=== PATIENT | male | born 1965 | race Caucasian/White ===

== ENCOUNTER 2024-06-07 05:37 | Emergency (ER) | payer BC, SELFPAY ==
[2024-06-07] VITALS (8 sets, daily range): BP systolic 149–191; BP diastolic 75–118; BMI 37.1
--- NOTE | 2024-06-07 05:56 | ED.GENMED ---
History of Present Illness
General
Chief Complaint: Chest Problem
Source: patient
Exam Limitations: none
Time Seen by Provider: 06/07/24 05:56
History of Present Illness
History of Present Illness:
58-year-old male started feeling ill yesterday. Very vague in his symptoms. [place] like there was some nasal congestion as he called it. Developed chest tightness at about 2 AM. This has been persistent. Nonpleuritic. No radiation of the
tightness to his shoulders back or arms. No true shortness of breath. No nausea. Nonexertional.
Past History
Past History
ED Past Medical History: HTN, Hypercholesterolemia and Psychiatric (Anxiety)
Review of Systems
Review of Systems
All Other Systems: Not applicable
Constitutional: Denies fever or chills
Respiratory: Denies cough
ABD/GI: Reports no symptoms
Phy Exam
Physical Exam
Physical Exam:
GENERAL: Alert and oriented in no apparent distress
EYE: Orbits normal.
NECK: Supple, no thyroid palpable
ENT: Pharynx without erythema
CARDIAC: Regular rate and rhythm without any obvious murmurs.
LUNGS: Clear breath sounds,normal
ABDOMEN: Soft, without focal tenderness or distention
NEUROLOGICAL: Alert and oriented , grossly non-focal
SKIN: Warm and dry, no rash or lesion, no discoloration, skin intact.
MUSCULOSKELETAL: No edema,no deformity.Good color
PSYCH: Normal and appropriate interaction.
Course
Orders/Labs/Results
Orders:
Orders
06/07/24 05:47
Electrocardiogram (*1) Urgent
Reason for Study: Shortness of Breath
EKG- Treatment ONCE
06/07/24 05:55
Chest [CR Chest - 2 Views ] Urgent
Comment:
Reason For Exam: sob, chest tightness
06/07/24 06:05
COVID-19 Antigen Urgent
Source: Nasal Swab
Complete Blood Count/With Diff Urgent
Comprehensive Metabolic Panel Urgent
D-Dimer Urgent
Troponin I Urgent
06/07/24 08:58
Electrocardiogram (*1) Urgent
Reason for Study: Chest Pain
EKG- Treatment ONCE
06/07/24 09:04
Electrocardiogram (*1) Stat
Reason for Study: Other
Other Reason for Exam: chest pain
EKG- Treatment ONCE
Troponin I Urgent
Abnormal Lab Results
06/07/24
06:05
WBC 10.9 H 10^3/uL
(4.8-10.8)
Abs Immat Gran (auto) 0.2 H 10^3/uL
(0-0.05)
Absolute Monos (auto) 1.2 H 10^3/uL
(0.1-0.6)
Absolute Eos (auto) 1.0 H 10^3/uL
(0-0.7)
Immature Gran % 1.8 H %
(0-0.5)
Monocytes % 10.9 H %
(1.7-9.3)
Eosinophils % 9.0 H %
(0-6)
Glucose 106 H mg/dl
(70-99)
06/07/24 06:05
06/07/24 06:05
Vital Signs
Initial and Last Documented VS:
Initial Vital Signs
Temp Pulse Resp BP Pulse Ox
98.7 F 90 22 179/118 98
06/07/24 05:39 06/07/24 05:39 06/07/24 05:39 06/07/24 05:39 06/07/24 05:39
Last Documented Vital Signs
Temp Pulse Resp BP Pulse Ox
98.7 F 81 17 160/83 96
06/07/24 05:39 06/07/24 09:15 06/07/24 09:15 06/07/24 08:02 06/07/24 09:15
MDM/Problems Addressed
Differential Diagnosis Includes:
Patient describing some symptoms that sound more infectious like. However with chest tightness cardiac needs to be evaluated. EKG is normal. Troponin pending. Will do repeat EKG and troponin. Relatively low suspicion for cardiac as an etiology.
Also doubt pulmonary emboli but in the differential. D-dimer pending. Pneumonia COVID other viral illness also in the differential.
*Pulse Oximetry
Patient hypoxic: no
*EKG
Interpreted by ED Provider?: Yes
Interpretation: normal
Comparison EKG: no comparison EKG present
Heart Rate: 84
Rate: normal
Rhythm: sinus
[place]: normal axis
Interval: normal interval
QRS Pattern: normal QRS
Ischemia: no ischemia
*Critical Care Note
Total Time (30-74mins, 75-104mins- exclusive of procedures): Not Applicable
Update Note
Update Note:
1135... Patient is remained stable and nontoxic. Cardiac workup is stable. Currently not complaining of any chest pressure. His complaints are of a facial congestion and sore throat. He does have a mild bandemia and a mild high eosinophil count.
Possibly suspicious for a infectious etiology. Possible sinusitis. Nothing to support cardiac etiology at this time. We will cover with antibiotics for a possible sinus issue but recommend cardiac follow-up given recent chest tightness and
cardiac risk factors. Repeat EKG stable no acute changes
ED Attending Note
-
Portions of this chart may have been created with voice recognition software.� Occasional wrong word or��sound alike� substitutions may have occurred due to the inherent limitations of voice recognition software.
Discharge Plan
Departure
Patient Disposition: Home (Routine Discharge)
Date of Disposition: 06/07/24
Time of Disposition: 11:38
Patient with high blood pressure during this ER visit?: Yes
Discharge Problem:
Chest tightness/resolved, Hypertension, Possible sinusitis
Instructions: Chest Pain CBC Follow Up, BLOOD PRESSURE
Prescriptions:
New
amoxicillin-pot clavulanate 875-125 mg tablet
1 tab PO BID Qty: 20 0RF
Referrals:
UNKNOWN - PT DOES,NOT KNOW [Family Provider] -
Activity Restrictions/Additional Instructions:
Antibiotics as directed
You should get a call from the shuttle inspector Saturday for close follow-up
Return sooner with recurrent or prolonged chest tightness shortness of breath high fever or any other concerning symptoms
Interventions
Interventions:
*Risk Screen - Suicide Last Done: 06/07/24 05:39
*General Assessment Last Done: 06/07/24 05:48
*Neglect/Abuse Screening Last Done: 06/07/24 05:39
ED- Fall Risk Assessment Last Done: 06/07/24 05:48
*ED COVID-19 Vaccine History Last Done: 06/07/24 05:48
ED- Cardiac Assessment Last Done: 06/07/24 05:48
ED- Pulmonary Assessment Last Done: 06/07/24 05:48
Discharge Date and Time
Print Language: IRISH
[2024-06-07 06:17] LABS: % Basophils 1.2 % (0-2); % Immature Granulocytes 1.8 % (0-0.5); % Lymphocytes 26.5 % (20.5-51.1); % Monocytes 10.9 % (1.7-9.3); % Neutrophils 50.6 % (42.2-75.2); Absolute Basophils 0.1 10^3/uL (0-0.2); Absolute Immature Granulocytes 0.2 10^3/uL (0-0.05); Absolute Lymphocytes 2.9 10^3/uL (1.2-3.4); Absolute Monocytes 1.2 10^3/uL (0.1-0.6); Absolute Neutrophils 5.5 10^3/uL (1.4-6.5); Hematocrit 42.8 % (39.0-52.0); Hemoglobin 15.7 g/dL (13.0-18.0); Mean Corp Hgb Conc. 36.7 g/dL (33.0-37.0); Mean Corpuscular Hgb 30.6 pg (27.0-31.0); Mean Corpuscular Volume 83.4 fL (80.0-94.0); Mean Platelet Volume 10.4 fL (7.4-10.4); Nucleated Red Blood Cells % 0 % (-); Platelet Count 254 10^3/uL (130-400); Red Blood Cell Count 5.13 10^6/uL (4.70-6.10); Red Cell Dist. Width 13.1 % (11.5-14.5); White Blood Cell Count 10.9 10^3/uL (4.8-10.8)
[2024-06-07 06:31] LABS: ALT (SGPT) 29 U/L (0-50); AST (SGOT) 38 U/L (17-59); Albumin 4.9 g/dl (3.5-5.0); Alkaline Phosphatase 56 U/L (38-126); Blood Urea Nitrogen 20 mg/dl (9-20); COVID-19 Antigen Negative (Negative); Calcium 9.9 mg/dl (8.4-10.2); Carbon Dioxide 23 mmol/L (22-30); Chloride 102 mmol/L (98-107); Estimated Creatinine Clearance > 125 ml/min; Glucose 106 mg/dl (70-99); Potassium 4.9 mmol/L (3.5-5.1); Sodium 137 mmol/L (135-145); Total Protein 7.6 g/dl (6.3-8.2); eGFR > 60.00
[2024-06-07 06:39] LABS: Troponin I 0.016 ng/ml
[2024-06-07 07:01] LABS: D-Dimer < 0.27 ug/mlFEU (0.00-0.50)
[2024-06-07 09:37] LABS: Troponin I 0.019 ng/ml
== END 2024-06-07 12:03 | disposition home or self-care (01) ==
LOC: EMR 05:37
PROVIDERS: Student in an Organized Health Care Education/Training Program; EMERGENCY PHYSICIAN Emergency Medicine
DX: I10 Essential (primary) hypertension (principal); Z11.52 Encounter for screening for COVID-19
CPT/HCPCS: 99285; 71046; 80053; 84484; 85025; 85379; 87811; 93005

== ENCOUNTER 2025-06-08 10:36 | Inpatient (IN) | payer BC, SELFPAY ==
[2025-06-08] VITALS (15 sets, daily range): BP systolic 128–165; BP diastolic 77–102; BMI 37.2; BMI 36.6
[2025-06-08 02:18] LABS: Hematocrit 43.6 % (39.0-52.0); Hemoglobin 15.0 g/dL (13.0-18.0); Mean Corp Hgb Conc. 34.4 g/dL (33.0-37.0); Mean Corpuscular Volume 85.8 fL (80.0-94.0); Nucleated Red Blood Cells % 0 % (-); Platelet Count 273 10^3/uL (130-400); Red Cell Dist. Width 13.1 % (11.5-14.5)
[2025-06-08 02:40] LABS: ALT (SGPT) 41 U/L (0-50); AST (SGOT) 27 U/L (17-59); Albumin 4.7 g/dl (3.5-5.0); Alkaline Phosphatase 48 U/L (38-126); Blood Urea Nitrogen 18 mg/dl (9-20); Calcium 9.9 mg/dl (8.4-10.2); Carbon Dioxide 28 mmol/L (22-30); Chloride 104 mmol/L (98-107); Estimated Creatinine Clearance > 125 ml/min; Glucose 111 mg/dl (70-99); Lipase 86 U/L (23-300); Potassium 4.9 mmol/L (3.5-5.1); Sodium 142 mmol/L (135-145); Total Protein 7.2 g/dl (6.3-8.2); eGFR > 60.00
[2025-06-08 02:51] LABS: Troponin I < 0.012 ng/ml
--- NOTE | 2025-06-08 03:05 | ED.GENMED ---
History of Present Illness
General
Chief Complaint: Chest Pain
Source: patient
Time Seen by Provider: 06/08/25 02:52
History of Present Illness
History of Present Illness:
This patient is a 59-year-old male who states that for many years he has had pain at a specific 'lump' in the epigastric area that will come and go. His doctor told him it may be related to fat tissue and that there was no immediate treatment
recommended. However, tonight around 11 PM, he noted pain in this area that has not gone away which prompted his visit here. He denies feeling dyspneic, but notes that the pain makes it feel like it is hard to breathe although he is getting enough
air in and does not feel breathless. He denies chest pain, back pain, nausea, vomiting, fever, chills, urinary symptoms, headache, swelling, or other complaints.
Past History
Past History
ED Past Medical History: HTN, Hypercholesterolemia and Psychiatric (Anxiety)
ED Past Surgical History: Orthopedic
Social History
Tobacco: Non-smoker
Alcohol: Occasional
Drug: None
Living: with family
Phy Exam
Physical Exam
Physical Exam:
GENERAL: Alert , appears mildly uncomfortable
EYE: pupils equal and reactive
NECK: Supple, no significant adenopathy.
ENT: o/p clr, mmm.
CARDIAC: Regular rate and rhythm .
LUNGS: Clear breath sounds bilaterally, no acute respiratory distress, no wheezes/rales/rhonchi
ABDOMEN: Soft, tenderness noteed at a specific area near epigastrum ?small lipoma here, no skin changes such as warm/cyanosis/redness/fluctuance/crepitus, no r/g, no cvat
NEUROLOGICAL: Alert and oriented, no focal neuro deficits
SKIN: Warm and dry, skin intact.
MUSCULOSKELETAL: No edema, well perfused.
PSYCH: Normal and appropriate interaction.
Scores
Heart Score for Chest Pain Patients
STEMI patient?: Not applicable
Course
Orders/Labs/Results
Orders:
Orders
06/08/25 00:58
EKG [Electrocardiogram (*1)] Urgent
Reason for Study: Chest Pain
Other Reason for Exam: substernal pain
EKG- Treatment ONCE
06/08/25 02:02
Cardiac Monitoring- Treatment ONCE
IV Insert/Care/Rem.- Treatment PRN
CR Chest - 2 Views Urgent
Comment:
Reason For Exam: respiratory distress
O2 Therapy [RESP] Urgent
Titrate/Wean O2 to maintain O2 sat greater than (%): 93
Special Instructions: TO MAINTAIN CONTINUOUS O2 SATS >/= 93%
Pulse Ox/cont/shift [RESP] Urgent
Quantity: 1
Special Instructions: continuous pulse ox
06/08/25 02:09
Complete Blood Count/With Diff Urgent
06/08/25 02:10
Comprehensive Metabolic Panel Urgent
Lipase Urgent
NT-proBNP Urgent
Troponin I Urgent
06/08/25 03:04
CT Abd/Pel (IV only)-DH only Urgent
Comment:
Reason For Exam: upper abd pain
Morphine Sulfate 4 mg IV NOW STA
06/08/25 03:26
Lactate Level [Lactic Acid] Urgent
06/08/25 04:00
Morphine Sulfate 4 mg IV NOW STA
06/08/25 05:19
CT Chest PE Study Urgent
Comment:
Reason For Exam: pain
06/08/25 05:33
Troponin I Urgent
06/08/25 06:36
US Abdomen Complete/Upper Urgent
Comment:
Reason For Exam: pain
06/08/25 06:40
Morphine Sulfate 4 mg IV NOW STA
06/08/25 10:20
Admit/Transfer Patient As Directed
Co-Sign Provider:
Level of Care: Inpatient admission
Assign to:: Medical/Surgical
Physician / Group: Gonzalez
Diagnosis: Intractable abdominal pain
Reason for Hospitalization: see progress note
Expected length of stay greater than two midnights?: Yes
ELOS- Estimated Length of Stay in days: 3
I certify the patient meets the requirements for IP care: Yes
PRN Pain Medication Management As Directed
May give lesser potent ordered pain med per pt: Yes
preference::
Protocol:: Medication orders for pain may be administered in a
manner that supports deferring to patient preference
when the pt is:
- Requesting an ordered lesser potent pain medication.
Least to most potent pain medications are defined
as: acetaminophen < NSAID < tramadol < opioids
(morphine, oxycodone, hydromorphone).
- Requesting a lesser dose of the same medication IF
ORDERED.
- Requesting a less intrusive route of administration
if both routes are prescribed by the provider (PO <
IV).
06/08/25 10:53
Sequential Compression Device [Pneumatic Compression Sleeves] As Directed
Type: Knee high
Comment: while in bed
DX Deep Vein Thrombosis Video Routine
Abnormal Lab Results
06/08/25 06/08/25
02:09 02:10
WBC 14.3 H 10^3/uL
(4.8-10.8)
MPV 10.5 H fL
(7.4-10.4)
Abs Immat Gran (auto) 0.2 H 10^3/uL
(0-0.05)
Absolute Neuts (auto) 8.3 H 10^3/uL
(1.4-6.5)
Absolute Monos (auto) 1.7 H 10^3/uL
(0.1-0.6)
Immature Gran % 1.3 H %
(0-0.5)
Monocytes % 12.0 H %
(1.7-9.3)
Glucose 111 H mg/dl
(70-99)
06/08/25 02:09
06/08/25 02:10
Vital Signs
Initial and Last Documented VS:
Initial Vital Signs
Temp Pulse Resp BP Pulse Ox
97.6 F 90 18 165/102 97
06/08/25 01:16 06/08/25 01:16 06/08/25 01:16 06/08/25 01:16 06/08/25 01:16
Last Documented Vital Signs
Temp Pulse Resp BP Pulse Ox
98.2 F 93 20 141/80 96
06/09/25 23:38 06/09/25 23:38 06/09/25 23:38 06/09/25 23:38 06/09/25 23:38
*Pulse Oximetry
SaO2: 96
Oxygen Mode of Delivery: Room air
Patient hypoxic: no
*Critical Care Note
Total Time (30-74mins, 75-104mins- exclusive of procedures): Not Applicable
Update Note
Update Note:
Patient presents to the Emergency Department with upper abdominal pain
Number and Complexity of Problems Addressed at the Encounter
� Chronic conditions affecting care:
� Acute Exacerbation and/or Progression of Chronic Illness:
� Differential Diagnosis includes: But not limited to cholelithiasis, ACS, incarcerated hernia, gastritis, etc. etc.
Amount and/or Complexity of Data to be Reviewed and Analyzed
� I performed an independent evaluation of and my interpretation is:
EKG: Read by me, normal sinus rhythm, normal rate, no acute ischemia
CT: CT abdomen pelvis appendix normal no bowel obstruction cholecystitis diverticulitis pancreatitis or obstructing renal stone small fat-containing umbilical hernia correlate clinically for reducibility small right pleural
effusion hepatic steatosis abdominal aorta is of normal caliber vascular calcifications scattered lymph nodes are likely reactive. CT chest technical level study is adequate no evidence of PE or dissection lungs are clear small right pleural
effusion no pneumothorax mild cardiomegaly no thoracic aortic aneurysm
Xrays: Read by me chest x-ray NAD
Laboratory Studies: Lipase and LFTs unremarkable making liver/pancreatic disease very unlikely. Mild white blood cell count elevation, nonspecific.
Other:us SEVERE DIFFUSE HEPATIC STEATOSIS.
2. Mild hepatomegaly.
� Review of other/old records reveals:
� Clinical information was obtained by an independent historian:
� Prescriptions/Medications Considered but not given:
� Further testing considered but not performed:
Risk of Complications and/or Morbidity or Mortality of Patient Management
� Social determinants of health affecting care:
� Discussion with other providers (PCP, Hospitalists, Consultants, etc):
� Escalation of care including admission/observation vs risk of discharge considered:
ED Attending Note
-
Portions of this chart may have been created with voice recognition software.� Occasional wrong word or��sound alike� substitutions may have occurred due to the inherent limitations of voice recognition software.
Discharge Plan
Departure
Patient Disposition: Admit
Date of Disposition: 06/08/25
Time of Disposition: 08:38
Admit to: Med/Surg
Presentation/result/management discussed w/ accepting MD/DO: Hospitalist
Discharge Problem:
Abdominal pain
Interventions
Interventions:
*Risk Screen - Suicide Last Done: 06/08/25 01:16
*General Assessment Last Done: 06/08/25 02:00
*Neglect/Abuse Screening Last Done: 06/08/25 01:16
*ED- Fall Risk Assessment Last Done: 06/08/25 02:00
*ED COVID-19 Vaccine History Last Done: 06/08/25 02:00
*Nursing Disposition Last Done: 06/08/25 11:48
ED- Cardiac Assessment Last Done: 06/08/25 02:37
Discharge Date and Time
Discharge Date/Time: 06/08/25 11:48
[2025-06-08] MEDS: MORPHINE SULFATE 4 MG IV ×3 (03:08→07:26)
[2025-06-08 06:16] LABS: Troponin I < 0.012 ng/ml
--- NOTE | 2025-06-08 11:19 | HPS.HSE ---
Family Physician
-
Family Physician: Linda Maynard MD
Chief Complaint
-
Abdominal pain
History of Present Illness
Patient presents with acute onset of abdominal pain starting Saturday. It got intensified Saturday and last night it was severe and he cannot sleep so came to the hospital.
He says he can pinpoint his area of pain and points to his epigastric area. Since the onset of this pain continuous and progressively worse and rates 10 out of 10. No radiation. But if he moves it hurts and if he takes a deep breath it hurts in
that area. Intermittent nausea or vomiting. He was able to eat yesterday. No diarrhea.
When he gets constipated you still with some discomfort in that area before.
No trauma.
No fever or chills.
Hard for him to breathe because of the pain. No chest pain.
In the last 2 years he has noticed occasionally he will have transient dysphagia with certain consistencies of food. Never had EGD. Denies any prior history of gastritis or gastric ulcer. Denies regular use of ibuprofen. Occasional alcohol use.
He has used multiple doses of IV morphine and still in pain.
He relocated from [place] 5 months ago to take care of his stepfather.
Medical History
Past Medical History
Past Medical History: Reports HTN, Hypercholesterolemia and Psychiatric (Mood disorder; on Depakote for many years.)
Past Surgical History: Reports Other (No abdominal surgeries)
Social History
Tobacco: Non-smoker
Alcohol: Occasional
Drug: None
Living: With Family
Family History
Family History: Not pertinent
Allergies / Home Medications
Allergies reflects when Allergies were last updated in [facility].
Home Medications with original date entered in [facility]
Allergy/Medication List:
Allergies
Allergy/AdvReac Type Severity Reaction Status Date / Time
No Known Allergies Allergy Verified 06/08/25 01:16
Home Medications
ascorbic acid (vitamin C) 500 mg tablet (Vitamin C) 500 mg PO DAILY 06/08/25
atorvastatin 40 mg tablet (Lipitor) 40 mg PO QPM 06/08/25
bupropion HCl 300 mg 24 hr tablet, extended release (Wellbutrin XL) 300 mg PO DAILY 06/08/25
calcium carbonate (Tums) 200 mg PO BIDPRN PRN gerd 06/08/25
cholecalciferol (vitamin D3) 25 mcg (1,000 unit) tablet (Vitamin D3) 25 mcg PO DAILY 06/08/25
divalproex 500 mg tablet,extended release 24 hr 2,000 mg PO HS 06/08/25
ezetimibe 10 mg tablet (Zetia) 10 mg PO DAILY 06/08/25
fenofibric acid (choline) 135 mg capsule,delayed release 135 mg PO DAILY 06/08/25
ibuprofen 200 mg tablet (Advil) 400 mg PO Q8HPRN PRN mild pain 06/08/25
icosapent ethyl 1 gram capsule 1 g PO DAILY 06/08/25
levofloxacin 500 mg tablet 500 mg PO DAILY 06/08/25
losartan 100 mg tablet 100 mg PO DAILY 06/08/25
vitamin B complex 1 tab PO DAILY 06/08/25
Review of Systems
-
A 12 point ROS was completed and negative except as noted: Yes
Physical Exam
Vital Signs
Vital Signs
Temp Pulse Resp BP Pulse Ox
97.6 F 85 20 151/88 93
06/08/25 01:16 06/08/25 06:04 06/08/25 05:00 06/08/25 06:04 06/08/25 05:00
Physical Exam
General: No Apparent Distress
Respiratory: Clear and Non Labored Respirations; No Accessory Resp Muscle Use
Cardiac: S1/S2 and Regular Rhythm; No Tachycardia or Murmur
GI: Soft, Non Distended (Obese abdomen), Normal Bowel Sounds and Tender (Localized area of tenderness in the medial part of epigastric area. Reproducible. No rebound but some guarding )
Neuro: AO x 3
Psych: Calm
Laboratory Results
-
06/08/25 02:09
06/08/25 02:10
Laboratory Results
Lactic Acid 1.5 mmol/L (0.7-2.0) 06/08/25 03:26
Total Bilirubin 0.8 mg/dl (0.2-1.3) 06/08/25 02:10
AST 27 U/L (17-59) 06/08/25 02:10
ALT 41 U/L (0-50) 06/08/25 02:10
Alkaline Phosphatase 48 U/L (38-126) 06/08/25 02:10
Troponin I < 0.012 ng/ml 06/08/25 05:33
Lipase 86 U/L (23-300) 06/08/25 02:10
Data Reviewed
-
Ultrasound: Report Reviewed by me ( abdo)
Lab Data: Labs Reviewed by me
Impression/Plan
-
Acute intractable abdominal pain of unclear etiology
Very focal pain and tenderness in the epigastric area medial to epigastric area. Reproducible pain. Some guarding because of tenderness.
Suspect musculoskeletal/soft tissue but no trauma ; patient had intermittent issues with dysphagia and heartburn. Rule out any internal hernias including paraesophageal hernia issues. Consult general surgery. Asked radiology to review the CT
chest and abdomen for any internal hernia or paraesophageal issues. Prelim report is nondiagnostic.
Keep him n.p.o. for now. Continue with the pain medication. Start on PPI. Start on IV fluids.
Leukocytosis noted
CT of the chest abdomen pelvis no acute findings on prelim report
Could be reactive
Trend for now
Mood disorder-continue home medications
Hyperlipidemia-continue with home medication
Hypertension-continue with losartan
Full code
--- NOTE | 2025-06-08 12:57 | CON.GS ---
Consultation
-
Date/Time Consultation Performed: 06/08/25
Requesting Provider: Carlos
Performing Provider: Pita
Reason for Consultation: Abd pain
Medical History
-
Chief Complaint: Epigastric pain
History of Present Illness:
59M with chronic pain for over 10 years localized to epigastrum. He feels a lump there, that does not change in size. It seems to be worse when he is bloated, but not affected by exertion. No radiation. Not a/w f/c/n/v. Recent sinus infection he has
been on levaquin, course complete 3 days ago. He c/o feeling generally unwell.
Past Medical History
Past Medical History: Other (HTN, Hypercholesterolemia and Psychiatric (Anxiety))
Past Surgical History: Orthopedic
Social History
Tobacco: Non-Smoker
Alcohol: Occasional
Living: With Family
Family History
Family History: Reviewed & Noncontributory
Allergies / Home Medications
Allergy/AdvReac Type Severity Reaction Status Date / Time
No Known Allergies Allergy Verified 06/08/25 01:16
�Medication �Instructions �Recorded �Confirmed �Type
ascorbic acid (vitamin C) 500 mg 500 mg PO DAILY 06/08/25 06/08/25 History
tablet (Vitamin C)
atorvastatin 40 mg tablet (Lipitor) 40 mg PO QPM 06/08/25 06/08/25 History
bupropion HCl 300 mg 24 hr tablet, 300 mg PO DAILY 06/08/25 06/08/25 History
extended release (Wellbutrin XL)
calcium carbonate (Tums) 200 mg PO BIDPRN PRN gerd 06/08/25 06/08/25 History
cholecalciferol (vitamin D3) 25 25 mcg PO DAILY 06/08/25 06/08/25 History
mcg (1,000 unit) tablet (Vitamin
D3)
divalproex 500 mg tablet,extended 2,000 mg PO HS 06/08/25 06/08/25 History
release 24 hr
ezetimibe 10 mg tablet (Zetia) 10 mg PO DAILY 06/08/25 06/08/25 History
fenofibric acid (choline) 135 mg 135 mg PO DAILY 06/08/25 06/08/25 History
capsule,delayed release
ibuprofen 200 mg tablet (Advil) 400 mg PO Q8HPRN PRN mild pain 06/08/25 06/08/25 History
icosapent ethyl 1 gram capsule 1 g PO DAILY 06/08/25 06/08/25 History
levofloxacin 500 mg tablet 500 mg PO DAILY 06/08/25 06/08/25 History
losartan 100 mg tablet 100 mg PO DAILY 06/08/25 06/08/25 History
vitamin B complex 1 tab PO DAILY 06/08/25 06/08/25 History
Review of Systems
-
A 10 point review of systems was completed, and was negative except as per HPI.
Physical Exam
Vital Signs
Temp Pulse Resp BP Pulse Ox
97.4 F 83 20 159/87 95
06/08/25 11:56 06/08/25 11:56 06/08/25 11:56 06/08/25 11:56 06/08/25 11:56
06/07/25 06/08/25 06/09/25
06:59 06:59 06:59
Actual Weight 114.2 kg 112.264 kg
Body Mass Index (BMI) 36.6
Lab Results
06/08/25 02:09
06/08/25 02:10
WBC 14.3 10^3/uL (4.8-10.8) H 06/08/25 02:09
Hgb 15.0 g/dL (13.0-18.0) 06/08/25 02:09
Hct 43.6 % (39.0-52.0) 06/08/25 02:09
Plt Count 273 10^3/uL (130-400) 06/08/25 02:09
Abs Immat Gran (auto) 0.2 10^3/uL (0-0.05) H 06/08/25 02:09
Neutrophils % 58.2 % (42.2-75.2) 06/08/25 02:09
Physical Exam
General: Well Developed, Well Nourished, No Apparent Distress and Other (diaphoretic)
HEENT: Normocephalic and Anicteric
GI: Soft, Tender (mainly to epigastrium, moderate, mild ttp to RUQ), Distended (mild-mod) and Other (soft reducible umbilical hernia)
Skin: Warm and Dry
Neuro: AO x 3
Psych: Calm
Data Reviewed
-
CT Scan: Image Personally Visualized and interpreted, Report Reviewed by me, Discussed with Physician and Discussed with Patient
Ultrasound: Image Personally Visualized and interpreted, Report Reviewed by me, Discussed with Physician and Discussed with Patient
Labs: Labs Reviewed by me, Discussed with Physician and Discussed with Patient
Assessment / Plan
-
59M with small epigastric subq mass, lipoma vs small ventral hernia
AFVSS, mild ttp to lump at epigastrium
Leukocytosis noted
US negative for biliary issues
CT negative for acute issues, negative for epigastric hernia, notable for 2cm umbilical hernia containing fat
I do not suspect this small lipoma vs epigastric hernia is related to his leukocytosis, diaphoresis, or general unwell feeling. Recommend outpt mgmt for the subq mass. Elective surgery offered, advised him to f/u in my office upon DC.
Pls call with ?s
[2025-06-08] MEDS: NSS (PRESERVATIVE FREE) 10 ML IV (13:03)
[2025-06-08] MEDS: ZOFRAN 4 MG IV (13:03)
[2025-06-08] MEDS: PROTONIX IV 40 MG IV (13:03)
[2025-06-08] MEDS: FLUSH (NSS) 1 FLUSH IV ×2 (13:03→17:37)
[2025-06-08] MEDS: COZAAR 100 MG PO (13:03)
[2025-06-08] MEDS: LR 1000 IV ×2 (13:04→23:50)
[2025-06-08] MEDS: WELLBUTRIN XL (24 hour extended release) 300 MG PO (13:04)
--- NOTE | 2025-06-08 13:30 | PTCARENOTE ---
Received pt from ER via stretcher, accompanied by ER staff. Pt AAO x3, REA; ambulatory to bed with minimal assistance; denies weakness/dizziness. VSS. On room air- pulse ox95%, no SOB noted. Abd large, firm, pt c/o discomfort mid abd around sl
firm 'lump' (+) nausea/vomiting small amts bile secretions. Pt to be NPO except meds/sips clears/ice chips. Pt DTV- states will void in BR; urinal left at bedside. Skin sl diaphoretic, afebrile; intact. IVF's RL @ 80 ml/hr initiated via Lt AC
site, currently infusing without sx of infiltration. Oriented to [place]. Will continue to monitor.
--- NOTE | 2025-06-08 14:45 | PTOTSP ---
Speech Language Pathology
Pt seen for clinical bedside swallow evaluation. Pt reported occasional globus sensation in upper chest with dense solids, such as steak. He reported this clears on own given time or with a liquid wash. He denied any regurgitation or previous
PNA. P.O. trials of puree, regular solids, and thin liquids provided. Adequate mastication, bolus formation, and A-P transit noted with no oral residue. No overt signs of aspiration. Appears to be esophageal in nature.
Recommend:
(1) Regular solids/thin liquids
(2) General aspiration precautions
(3) Esophageal precautions: sit upright, slow rate, small bites, take break if globus sensation noted
(4) Meds as tolerated
(5) Consider GI consult either inpatient or outpatient pending surgical workup
(6) UTILITY MANAGER to sign off. Please reconsult as indicated
--- NOTE | 2025-06-08 16:17 | PTCARENOTE ---
Pt resting quietly at present, no c/o. VSS. Jabier sips clear/ice chips; to start clear liquid diet. IVF's RL @ 80 ml/hr infusong via Lt AC site without sx of infiltration. Will; continue to monitor.
[2025-06-08] MEDS: LIPITOR 40 MG PO (17:32)
[2025-06-08] MEDS: DILAUDID 0.25 MG IV ×2 (17:37→23:56)
[2025-06-08 18:16] LABS: Glucose - Point of Care 95 mg/dl (70-99)
[2025-06-08] MEDS: DEPAKOTE ER (24 HR RELEASE) 2000 MG PO (21:15)
--- NOTE | 2025-06-08 23:04 | VATNOTE ---
called by PCN to check IV LMAB site with signicant infiltration about 6 inches made PCN aware to elevate and apply ice.
[2025-06-09 07:00] VITALS: BP 138/87
[2025-06-09 07:28] LABS: Hematocrit 39.5 % (39.0-52.0); Hemoglobin 13.7 g/dL (13.0-18.0); Mean Corp Hgb Conc. 34.7 g/dL (33.0-37.0); Mean Corpuscular Volume 87.8 fL (80.0-94.0); Platelet Count 237 10^3/uL (130-400); Red Cell Dist. Width 13.5 % (11.5-14.5)
[2025-06-09] MEDS: WELLBUTRIN XL (24 hour extended release) 300 MG PO (07:41)
[2025-06-09] MEDS: PROTONIX IV 40 MG IV ×2 (07:42→20:37)
[2025-06-09] MEDS: TRICOR 145 MG PO (07:42)
[2025-06-09] MEDS: COZAAR 100 MG PO (07:42)
[2025-06-09] MEDS: ZETIA 10 MG PO (07:42)
[2025-06-09] MEDS: DILAUDID 0.25 MG IV (07:43)
[2025-06-09] MEDS: NSS (PRESERVATIVE FREE) 10 ML IV ×2 (07:43→20:38)
[2025-06-09 07:58] LABS: ALT (SGPT) 29 U/L (0-50); AST (SGOT) 17 U/L (17-59); Albumin 4.0 g/dl (3.5-5.0); Alkaline Phosphatase 38 U/L (38-126); Blood Urea Nitrogen 16 mg/dl (9-20); Calcium 8.8 mg/dl (8.4-10.2); Carbon Dioxide 31 mmol/L (22-30); Chloride 100 mmol/L (98-107); Estimated Creatinine Clearance 124 ml/min; Glucose 111 mg/dl (70-99); Potassium 4.4 mmol/L (3.5-5.1); Sodium 139 mmol/L (135-145); Total Protein 6.1 g/dl (6.3-8.2); eGFR > 60.00
[2025-06-09] MEDS: LR 1000 IV (11:39)
[2025-06-09] MEDS: ROXICODONE 5 MG PO ×2 (11:39→18:27)
--- NOTE | 2025-06-09 11:45 | CM ---
Alert awake oriented patient who lives with step father Max in a 3 story home with 12 step to enter.He is independent in driving and in all activities of daily living.He was offered VN he declined need.
No VN hx / SNF history in [place]
Pharmacy [facility] [address]
PCP DR Maynard
PLAN Home Declined VN
--- NOTE | 2025-06-09 14:42 | W.PN.HOSP.TC ---
Today's Communication/Plan
-
Increase PPI to twice daily
Consult GI
Assessment / Plan
Assessment / Plan
Acute intractable abdominal pain of unclear etiology
Epigastric area. Patient with ongoing some dysphagia.
CT of the abdomen pelvis nondiagnostic for abdominal pathology. Appreciate surgical input.
Continue with PPI and antiemetics.
Suspicion is for upper GI pathology-consult GI.
Leukocytosis noted
CT of the chest abdomen pelvis no acute findings on prelim report
Could be reactive.improving
Trend for now
Mood disorder-continue home medications
Hyperlipidemia-continue with home medication
Hypertension-continue with losartan
Full code
Anticipated Discharge: 24 - 48 hours
Subjective/Interval History
-
Date of Service: June 09, 2025
Continued abdominal pain/epigastric pain. Needing IV pain medication and also nausea medicine.
No fever or chills.
Objective Data
-
Labs:
Laboratory Results
06/09/25
06:11
WBC 11.2 H
Hgb 13.7
Hct 39.5
Plt Count 237
Sodium 139
Potassium 4.4
Chloride 100
Carbon Dioxide 31 H
BUN 16
Creatinine 0.8
Glucose 111 H
Calcium 8.8
Total Bilirubin 0.8
AST 17
ALT 29
Alkaline Phosphatase 38
Vital Signs:
Vital Signs
Temp Pulse Resp BP Pulse Ox
97.6 F 89 12 138/87 95
06/09/25 07:00 06/09/25 07:42 06/09/25 07:00 06/09/25 07:42 06/09/25 10:45
I&O
06/08/25 06/09/25 06/10/25
06:59 06:59 06:59
Intake Total 1820 / 1820
Output Total 0 / 0
Balance 1819
Physical Exam
-
General: Comfortable
Respiratory: Clear to Auscultation and Non Labored Respirations; Negative Accessory Resp Muscle Use
Cardiac: Regular Rhythm and S1/S2
GI: Soft, Nondistended, Normal Bowel Sounds and Tender (epigastric area )
Neuro: AO x 3
Data Reviewed
-
Labs: Labs Reviewed by me
[2025-06-09 15:00] VITALS: BP 141/87
--- NOTE | 2025-06-09 15:42 | CON.GI ---
Addendum entered and electronically signed by Aubrie Mckeon Do, MD 06/09/25 17:18:
I saw and examined the patient.
The BUILD MANAGER's note was reviewed and I agree with the note.
Comment: Ronnie is a 59yo M with h/o HTN, hyperplipidemia and obeisty who reports acute epigastric abd pain started one week ago with nausea an poor oral intake. He feels a 'lump' there for a few years. 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
retired. He feels that there is associated reflux, heartburn and solid food dysphagia few times per week. Denies diarrhea, constipation or wt loss. VSS exam distended abd TTP epigastric periumbilical hernia. Labs reviewed no anemia. EGD/colon
9yrs ago in [facility] per pt benign polyps. Imaging: Abd US fatty liver, CT chest neg PE CTAP IV contrast small R pleural effusion
Impression
- Acute epigastric abd pain
ddx includes PUD, hernia or dyspepsia
- Dysphagia to solids
- Leukocytosis
- Hepatic steatosis
- HTN
- Hyperlipidemia
- Obesity
Recommendations
- EGD tomorrow
- NPO at MN
- C/w PPI to BID
- Add carafate
- Miralax x1 now, gas ex PRN
Will follow with you.
Original Note:
Consultation
-
Date/Time Consultation Requested: 06/09/25 1445
Date/Time Consultation Performed: 06/09/25 1545
Requesting Provider: Lj Gonzalez MD
Performing Provider: NEGRO Flynn, Aubrie Gilman MD
Reason for Consultation: abdominal pain
Medical History
Chief Complaint / HPI
History of Present Illness:
Pt is a 59yo with hx HTN, hypercholesterolemia, mood disorder, anxiety, prior back surgery, with onset of abdominal pain. On admission noted with WBC 14,300, hbg 13.7, platelets 237, stable chemistry with glucose 111 with normal LFT's and lipase.
Pt has been seen by surgery team due to intensity of pain and lump in epigastric area concern for lipoma vs ventral hernia. Imaging on admission with US noted severe hepatic steatosis,HM, CT chest- no PE, small right effusion, no PNA< CT a/p IV
contrast only with no HH or esophageal thickening, small lymph node distal esophagus, fatty liver, no obstructive uropathy, mild stool burden , periumbilical hernia with fat, left lateral post surgical changes, normal appendix.
In review with patient he admits to multiple complaints. He has has 3 years of dysphagia with feeling of solids sticking in lower esophagus. He denies wt loss but admits to wt gain. no hematemesis. He also has worsening abdominal pain. He
admits to chronic lump in abdomen but now 10/10 pain with shortness of breath on admission. Pain worse with movement. Pain improved with pain med now 5/10 and no change in eating. Occasional GERD with tums PRN. + constipation at times with
increased epigastric pain at time. No diarrhea or rectal bleeding. colonoscopy 8 years ago with polyps.
Past Medical History
Past Medical History: HTN, Hypercholesterolemia, Psychiatric (anxiety, mood disorder) and Other (colon polyps)
Past Surgical History: Orthopedic (back surgery x 2 and rotator cuff)
Social History
Tobacco: Non-Smoker
Alcohol: None
Drug: None
Personal:
Living: With Family
Employment: Not Employed
Family History
Family History: Other (no family hx colon CA or GI problems )
Allergies / Home Medications
Allergy/AdvReac Type Severity Reaction Status Date / Time
No Known Allergies Allergy Verified 06/08/25 01:16
�Medication �Instructions �Recorded
ascorbic acid (vitamin C) 500 mg 500 mg PO DAILY 06/08/25
tablet (Vitamin C)
atorvastatin 40 mg tablet (Lipitor) 40 mg PO QPM 06/08/25
bupropion HCl 300 mg 24 hr tablet, 300 mg PO DAILY 06/08/25
extended release (Wellbutrin XL)
calcium carbonate (Tums) 200 mg PO BIDPRN PRN gerd 06/08/25
cholecalciferol (vitamin D3) 25 25 mcg PO DAILY 06/08/25
mcg (1,000 unit) tablet (Vitamin
D3)
divalproex 500 mg tablet,extended 2,000 mg PO HS 06/08/25
release 24 hr
ezetimibe 10 mg tablet (Zetia) 10 mg PO DAILY 06/08/25
fenofibric acid (choline) 135 mg 135 mg PO DAILY 06/08/25
capsule,delayed release
ibuprofen 200 mg tablet (Advil) 400 mg PO Q8HPRN PRN mild pain 06/08/25
icosapent ethyl 1 gram capsule 1 g PO DAILY 06/08/25
levofloxacin 500 mg tablet 500 mg PO DAILY 06/08/25
losartan 100 mg tablet 100 mg PO DAILY 06/08/25
vitamin B complex 1 tab PO DAILY 06/08/25
Review of Systems
-
History Source: Patient
Constitutional: Reports Weight Gain
EENT: Reports No Symptoms
Respiratory: Reports No Symptoms
Cardiac: Reports No Symptoms
Abdomen/GI: Reports Abdominal Pain, Constipated (at time ) and Other (dysphagia , occasional GERD)
: Reports No Symptoms
Musculoskeletal: Reports Other
Skin: Reports No Symptoms
Neurological: Reports Weakness
Endocrine: Reports No Symptoms
Hematologic/Lymphatic: Reports No Symptoms
Vital Signs
Temp Pulse Resp BP Pulse Ox
97.6 F 89 12 138/87 95
06/09/25 07:00 06/09/25 07:42 06/09/25 07:00 06/09/25 07:42 06/09/25 10:45
Physical Exam
Exam
General: Well Developed, Well Nourished, No Apparent Distress and Other (anxious with no etiology for pain )
HEENT: Normocephalic and Anicteric
Respiratory: Clear
Cardiac: Regular Rhythm
GI: Soft, Non Distended and Tender (around palpable lump in epigastric area-- worsening pain with movement to bedside )
Musculoskeletal: No Clubbing and No Cyanosis
Skin: Warm and Dry
Neuro: Awake, Alert and AO x 3
Psych: Calm
Results
WBC 11.2 10^3/uL (4.8-10.8) H 06/09/25 06:11
Hgb 13.7 g/dL (13.0-18.0) 06/09/25 06:11
Hct 39.5 % (39.0-52.0) 06/09/25 06:11
MCV 87.8 fL (80.0-94.0) 06/09/25 06:11
Plt Count 237 10^3/uL (130-400) 06/09/25 06:11
Absolute Neuts (auto) 8.3 10^3/uL (1.4-6.5) H 06/08/25 02:09
Sodium 139 mmol/L (135-145) 06/09/25 06:11
Potassium 4.4 mmol/L (3.5-5.1) 06/09/25 06:11
Chloride 100 mmol/L (98-107) 06/09/25 06:11
Carbon Dioxide 31 mmol/L (22-30) H 06/09/25 06:11
BUN 16 mg/dl (9-20) 06/09/25 06:11
Creatinine 0.8 mg/dL (0.7-1.3) 06/09/25 06:11
Calcium 8.8 mg/dl (8.4-10.2) 06/09/25 06:11
Total Bilirubin 0.8 mg/dl (0.2-1.3) 06/09/25 06:11
AST 17 U/L (17-59) 06/09/25 06:11
ALT 29 U/L (0-50) 06/09/25 06:11
Alkaline Phosphatase 38 U/L (38-126) 06/09/25 06:11
Lipase 86 U/L (23-300) 06/08/25 02:10
Diagnostic Image Results:
06.08.25 US Abdomen Complete/Upper
1. SEVERE DIFFUSE HEPATIC STEATOSIS.
2. Mild hepatomegaly.
06/08/25 CT Chest PE Study
Respiratory motion degradation resulting in heterogeneous intraluminal contrast enhancement of bilateral segmental and subsegmental pulmonary arteries in the upper and lower lobes. No filling defect in the right or left main pulmonary artery, nor
within the upper lower lobe lobar arteries, bilaterally.
Pulmonary artery branching order level of the most proximal pulmonary embolism: N/A
Small right pleural effusion. Adjacent minor atelectasis. No evidence of pneumonia.
No pneumothorax.
06.08.25 CT Abd/Pel (IV only)-DH only
Small right pleural effusion. Likely minor adjacent compressive atelectasis.
No hiatal hernia. No apparent or significant distal esophageal wall thickening. Small, 7.5 mm nonspecific lymph noted at the right lateral margin of the distal esophagus.
Stomach is relatively collapsed and unremarkable in appearance.
Fatty infiltration of liver.
No obstructive uropathy. Small, likely complex renal cysts.
No bowel obstruction. Mild colonic fecal burden.
Normal appendix.
2.5 cm periumbilical hernia containing fat. Left para midline anterior abdominal postsurgical changes.
Lateral left hemipelvis presumed postsurgical changes anterior to the iliopsoas muscle.
Postsurgical changes in the lumbar spine, as described. 5.9 x 3.8 cm right posterior paraspinal soft tissue mass, presumably related to previous surgical intervention. However, clinical correlation with surgical history is necessary, as well as
direct comparison with any prior examination, which is not available at this facility.
Prior GI Procedures:
EGD: none
Colonoscopy: 8 years ago with polyps
Assessment / Plan
-
Pt is a 59yo with hx HTN, hypercholesterolemia, mood disorder, anxiety, prior back surgery, with onset of abdominal pain. On admission noted with WBC 14,300, hbg 13.7, platelets 237, stable chemistry with glucose 111 with normal LFT's and lipase.
Pt has been seen by surgery team due to intensity of pain and lump in epigastric area concern for lipoma vs ventral hernia. Imaging on admission with US noted severe hepatic steatosis,HM, CT chest- no PE, small right effusion, no PNA< CT a/p IV
contrast only with no HH or esophageal thickening, small lymph node distal esophagus, fatty liver, no obstructive uropathy, mild stool burden , periumbilical hernia with fat, left lateral post surgical changes, normal appendix. pt also with
complaints of worsening dysphagia over last 3 years. Occasional GERD and occasional constipation. colonoscopy 8 years ago with polyps.1 NSAID per week. No anticoagulation.
-epigastric pain
-dysphagia
-palpable epigastric mass ? lipoma
-Ct with small lymph node distal esophagus
-fatty liver
-occasional GERD
-
other med problems:
-colon polyps
-HTN
-hyperlipidemia
-mood disorder
-anxiety
-back surgery
PLAN:
Etiology of epigastric pain related to muscular source with increased pain with trying to get out of bed, PUD though occasional NSAID use 1 tab per week, gastritis, vs other
pt also with chronic dysphagia with solids, -- schatzki's ring, dysmotility vs other
plan for EGD in AM
clear then NPO
pain control
for miralax with narcotic use for hx constipation
cont PPI
NSAID avoidance
Carafate added but will hold AM dose prior to EGD -- may be constipating
OP follow up for fatty liver and consider eventual repeat colonoscopy with hx polyps
-
-
Thank you for consultation and allowing me to participate in the patient's care. Please call the exhaust emissions inspector GI physician during the after hours with any questions or concerns.
[2025-06-09] MEDS: CARAFATE SUSPENSION 1 GM PO ×2 (16:30→22:00)
[2025-06-09] MEDS: MIRALAX 17 GRAMS PO (16:30)
[2025-06-09] MEDS: LIPITOR 40 MG PO (17:09)
[2025-06-09] MEDS: MYLICON 80 MG PO ×2 (18:28→22:01)
[2025-06-09] MEDS: DEPAKOTE ER (24 HR RELEASE) 2000 MG PO (20:40)
[2025-06-09 23:38] VITALS: BP 141/80
[2025-06-10] VITALS (7 sets, daily range): BP systolic 116–146; BP diastolic 83–95
[2025-06-10 07:29] LABS: Hematocrit 42.7 % (39.0-52.0); Hemoglobin 14.4 g/dL (13.0-18.0); Mean Corp Hgb Conc. 33.7 g/dL (33.0-37.0); Mean Corpuscular Volume 88.2 fL (80.0-94.0); Platelet Count 234 10^3/uL (130-400); Red Cell Dist. Width 13.3 % (11.5-14.5)
[2025-06-10 07:31] LABS: INR 0.95; PT 13.2 Sec (11.4-14.6)
[2025-06-10] MEDS: TRICOR 145 MG PO (08:06)
[2025-06-10] MEDS: WELLBUTRIN XL (24 hour extended release) 300 MG PO (08:06)
[2025-06-10] MEDS: COZAAR 100 MG PO (08:06)
[2025-06-10] MEDS: ZETIA 10 MG PO (08:07)
[2025-06-10] MEDS: PROTONIX IV 40 MG IV (08:07)
[2025-06-10] MEDS: NSS (PRESERVATIVE FREE) 10 ML IV (08:07)
--- NOTE | 2025-06-10 12:35 | PTCARENOTE ---
pt back from GI lab s/p EGD. pt is AAO*3, Vss, room air. pt denies any pain at this time. pt is on regular diet as per GI. pt is oriented to the room. call soni within the reach.
--- NOTE | 2025-06-10 13:47 | W.PN.UPDATE ---
Update Note
Progress Note Update
Upon RN request
I called updated pt's step dad
Several hours post EGD updated patient again bedside with results of EGD
He ate 80% of lunch without issues
Will call with bx results in 2wks time
C/w PPI, diet modifications
Please call back for ? GI will sign off
--- NOTE | 2025-06-10 14:04 | W.DCSUMMARY ---
Discharge Summary
Discharge Data
Date of Admission: 06/08/25
Date of Discharge: 06/10/25
-
Pending Results: Yes (Esophageal polyp biopsy)
Hospital Course
Primary diagnosis:
Abdominal pain
Gastritis
Esophageal polyp
Secondary diagnosis:
Mood disorder not otherwise specified
Hyperlipidemia
Primary hypertension
Hospital course:
Patient presented with acute onset of nontraumatic abdominal pain. In the last couple of years he was noticing some transient dysphagia to solids. He is on ibuprofen but denies regular use. Alcohol use is occasional. There is tenderness in the
epigastric area and a palpable abdominal wall nodule question lipoma. CT of the abdomen pelvis showed small 7.5 mm nonspecific lymph node in the right lateral margin of the distal esophagus but there is no esophageal thickening or hypersomnia. Fat
infiltration of the liver noted. There was a 2.5 cm Armando umbilical hernia containing fat. Due to tenderness he was seen by general surgery who felt there was no acute surgical issues. In review of ongoing intractable abdominal pain and solid
dysphagia he went on to have EGD which showed esophageal polyp of 7 mm which was biopsied. Gastritis was noted. She was put on PPI. Advised to stop taking ibuprofen. He was able to tolerate diet after endoscopy and he was discharged home and
advised to follow-up with GI regarding the polyp biopsy report.
He had CT chest which showed no PE.
Today he had EGD and post EGD his pain was better. He was tolerating diet. Afebrile. Blood pressure 129/87. Abdominal soft and nontender now.
He was deemed stable for discharge today and follow-up with GI as an outpatient.
Consultants on board:
General surgery -Christopher Atkinson
GI - Aubrie Lewis Do
Discharge Plan
-
Patient Disposition: Home (Routine Discharge)
Discharge Diagnosis/Procedures: Abdominal pain ;gastritis ;esophageal polyp
Diet: Regular
Activity: As tolerated
Driving Restrictions: As prior to admission
Bathing Restrictions: None
Referrals:
Aubrie Gilman MD [Active, Gastroenterology]
Referral Note: follow up with Dr. Gilman or Ger for abdominal pain, and to review for fatty liver
Linda Maynard MD [Family Provider, [facility]] - in less than 1 week
Prescriptions:
New
pantoprazole [Protonix] 40 mg tablet,delayed release (DR/EC)
40 mg PO DAILY Qty: 30 0RF
Continued
icosapent ethyl 1 gram capsule
1 g PO DAILY
atorvastatin [Lipitor] 40 mg Tablet
40 mg PO QPM
ascorbic acid (vitamin C) [Vitamin C] 500 mg Tablet
500 mg PO DAILY
divalproex 500 mg Tablet Extended Release 24 Hr
2,000 mg PO HS
calcium carbonate [Tums] 200 mg calcium (500 mg) Tablet,Chewable
200 mg PO BIDPRN PRN (Reason: gerd)
vitamin B complex Tablet
1 tab PO DAILY
losartan 100 mg Tablet
100 mg PO DAILY
ezetimibe [Zetia] 10 mg Tablet
10 mg PO DAILY
bupropion HCl [Wellbutrin XL] 300 mg Tablet Extended Release 24 Hr
300 mg PO DAILY
cholecalciferol (vitamin D3) [Vitamin D3] 25 mcg (1,000 unit) Tablet
25 mcg PO DAILY
fenofibric acid (choline) 135 mg capsule,delayed release(DR/EC)
135 mg PO DAILY
Discontinued
ibuprofen [Advil] 200 mg Tablet
400 mg PO Q8HPRN PRN (Reason: mild pain)
levofloxacin 500 mg Tablet
500 mg PO DAILY
Rx Instructions:
for 10 days starting 06/01/25
Discharge Orders:
Discharge Patient (As Directed); Ordered 06/10/25
Ordered By: Lj Gonzalez
Discharge Date and Time
Print Language: TURKMEN
--- NOTE | 2025-06-10 14:36 | W.PN.UPDATE ---
Update Note
Progress Note Update
Abdomen pelvis showed postsurgical changes in the lumbar spine, as described. 5.9 x 3.8 cm right posterior paraspinal soft tissue mass, presumably related to previous surgical intervention. Patient says he had 2 spinal surgeries 1 anterior approach
1 posterior approach the last 1 was 2004. He has no back pain symptoms whatsoever. Advised against further imaging if he were to develop any pain symptoms. I suspect his lumbar spine changes are all postsurgical scarring.
--- NOTE | 2025-06-10 15:11 | CM ---
MD entered order for discharge.
Spoke with patient in room.
He said he had Upper GI today and he agrees with discharge today.
Pt declined VN need.
Pt said he will drive himself home today.
PLAN Home no needs
== END 2025-06-10 15:15 | disposition home or self-care (01) | DRG 392 ==
LOC: 4 EAST ACU 10:36
PROVIDERS: Nurse Practitioner Adult Health; ADMITTING PHYSICIAN Internal Medicine; CONSULT PHYSICIAN Internal Medicine Gastroenterology; CONSULT PHYSICIAN Surgery; EMERGENCY PHYSICIAN Emergency Medicine; FAMILY PHYSICIAN Family Medicine
PROC: 0DB48ZX Excision of Esophagogastric Junction, Via Natural or Artificial Opening Endoscopic, Diagnostic (ICD-10-PCS; 2025-06-10)
PROC: 0DB98ZX Excision of Duodenum, Via Natural or Artificial Opening Endoscopic, Diagnostic (ICD-10-PCS; 2025-06-10)
PROC: 0DB78ZX Excision of Stomach, Pylorus, Via Natural or Artificial Opening Endoscopic, Diagnostic (ICD-10-PCS; 2025-06-10)
PROC: 0DB58ZX Excision of Esophagus, Via Natural or Artificial Opening Endoscopic, Diagnostic (ICD-10-PCS; 2025-06-10)
DX: K29.70 Gastritis, unspecified, without bleeding (principal); E78.00 Pure hypercholesterolemia, unspecified; F41.9 Anxiety disorder, unspecified; I10 Essential (primary) hypertension; K76.0 Fatty (change of) liver, not elsewhere classified; R16.0 Hepatomegaly, not elsewhere classified; K42.9 Umbilical hernia without obstruction or gangrene; K21.9 Gastro-esophageal reflux disease without esophagitis; N28.1 Cyst of kidney, acquired; K22.82 Esophagogastric junction polyp; K31.89 Other diseases of stomach and duodenum; L90.5 Scar conditions and fibrosis of skin; K22.2 Esophageal obstruction; F39 Unspecified mood [affective] disorder; E66.9 Obesity, unspecified; D72.829 Elevated white blood cell count, unspecified; G89.29 Other chronic pain; Z86.0100 Personal history of colon polyps, unspecified; Z87.11 Personal history of peptic ulcer disease; Z68.36 Body mass index [BMI] 36.0-36.9, adult
CPT/HCPCS: 71046; 71275; 74177; 76700; 80053; 82962; 83605; 83690; 83880; 84484; 85025; 85027; 85610; 88305; 88342; 92610; 93005; 94760; 96374; 96376; 99285; Q9967

== ENCOUNTER 2025-06-16 09:39 | Emergency (ER) | payer BC, SELFPAY ==
[2025-06-16 09:39] VITALS: BMI 36.9
[2025-06-16 09:40] VITALS: BP 157/89
--- NOTE | 2025-06-16 10:10 | ED.GENMED ---
History of Present Illness
General
Chief Complaint: Skin Problem
Source: patient
Exam Limitations: none
Time Seen by Provider: 06/16/25 09:49
Nursing documentation reviewed up to this point in time: agreed with
History of Present Illness
History of Present Illness:
Patient is a 59-year-old male presents to the ER for evaluation of left arm swelling and redness. Patient reports he was admitted June 08 to June 10 for gastritis and had an IV line in his left arm. While he was here they changed his IV from
his left arm to his right arm. He reports for the past several days he has had pain and swelling and mild redness to the inner aspect of his left upper arm at the site of the previous IV site/
Past History
Past History
ED Past Medical History: HTN, Hypercholesterolemia and Psychiatric (Anxiety)
ED Past Surgical History: Orthopedic
Social History
Tobacco: Non-smoker
Alcohol: Occasional
Drug: None
Living: with family
Phy Exam
General Physical Exam
General Presentation: no apparent distress
General age: appears stated age
General Skin: warm and dry
General Habitus: normal
General Mental: alert
General Hydration: appears well hydrated
Cardiovascular Exam
Cardiovascular Exam: regular rate/rhythm, no murmur and normal peripheral pulses
Pulmonary Exam
Pulmonary Exam: lungs clear and no respiratory distress
Neurological Exam
Neurological Exam: alert and oriented x3
Musculoskeletal Exam
Musculoskeletal Exam: other (lue with strong pulses + swelling to prox left forearm and distal upper arm/elbow region with mild erythema to inner aspect of upper arm )
Skin Exam
Skin Exam: normal color and warm/dry
Psychiatric Exam
Psychiatric Exam: normal mood/affect
Course
Orders/Labs/Results
Orders:
Orders
06/16/25 10:09
Venous Doppler Upr Ext Left [US Periph Venous UPPER Ext LT] Urgent
Comment:
Reason For Exam: swelling/rednes to left arm s/p iv insertion
06/16/25 10:59
Complete Blood Count/With Diff Urgent
Comprehensive Metabolic Panel Urgent
06/16/25 12:17
Apixaban [Eliquis] 10 mg PO NOW STA
Abnormal Lab Results
06/16/25
10:59
WBC 11.0 H 10^3/uL
(4.8-10.8)
Abs Immat Gran (auto) 0.1 H 10^3/uL
(0-0.05)
Absolute Monos (auto) 1.5 H 10^3/uL
(0.1-0.6)
Immature Gran % 1.2 H %
(0-0.5)
Monocytes % 13.2 H %
(1.7-9.3)
06/16/25 10:59
06/16/25 10:59
Vital Signs
Initial and Last Documented VS:
Initial Vital Signs
Temp Pulse Resp BP Pulse Ox
97.5 F 105 18 157/89 98
06/16/25 09:40 06/16/25 09:40 06/16/25 09:40 06/16/25 09:40 06/16/25 09:40
Last Documented Vital Signs
Temp Pulse Resp BP Pulse Ox
97.5 F 94 16 134/84 100
06/16/25 09:40 06/16/25 12:00 06/16/25 12:00 06/16/25 12:00 06/16/25 12:00
MDM/Problems Addressed
Differential Diagnosis Includes:
Not limited to DVT superficial thrombophlebitis, cellulitis
MDM/Problems Addressed:
As documented patient is a 59-year-old male who recently was admitted had an IV line in his left arm and complains of pain and swelling minimal redness. Ultrasound shows left upper extremity DVT with occlusive thrombus within the left axillary vein
and occlusive thrombus throughout the left basilic vein in the upper arm. Normal kidney function. Will place on Eliquis. Discussed with patient close okay to follow-up with PCP. Patient denies any shortness of breath lungs are clear
nontachycardic nonhypoxic no symptoms of PE
*Radiology
Radiology exam reviewed: radiology read reviewed
*Pulse Oximetry
SaO2: 98
Oxygen Mode of Delivery: Room air
Patient hypoxic: no
*Critical Care Note
Total Time (30-74mins, 75-104mins- exclusive of procedures): Not Applicable
ED Attending Note
-
Portions of this chart may have been created with voice recognition software.� Occasional wrong word or��sound alike� substitutions may have occurred due to the inherent limitations of voice recognition software.
Discharge Plan
Departure
Patient Disposition: Home (Routine Discharge)
Date of Disposition: 06/16/25
Time of Disposition: 12:57
Patient with high blood pressure during this ER visit?: Yes
Condition: Fair
Covid-19: Not Applicable
Discharge Problem:
DVT (deep venous thrombosis)
Instructions: How to take anticoagulants safely, Deep vein thrombosis (blood clot in the arm), BLOOD PRESSURE
Prescriptions:
New
Eliquis DVT-PE Treat 30D Start 5 mg (74 tabs) tablets,dose pack
See Rx Instructions .ROUTE .COMPLEX Qty: 74 0RF
Rx Instructions:
10 mg twice daily for 7 days followed by 5 mg twice daily
No Action
icosapent ethyl 1 gram capsule
1 g PO DAILY
atorvastatin [Lipitor] 40 mg Tablet
40 mg PO QPM
ascorbic acid (vitamin C) [Vitamin C] 500 mg Tablet
500 mg PO DAILY
divalproex 500 mg Tablet Extended Release 24 Hr
2,000 mg PO HS
calcium carbonate [Tums] 200 mg calcium (500 mg) Tablet,Chewable
200 mg PO BIDPRN PRN (Reason: gerd)
vitamin B complex Tablet
1 tab PO DAILY
losartan 100 mg Tablet
100 mg PO DAILY
Patient Comments:
no pharamcy fills
ezetimibe [Zetia] 10 mg Tablet
10 mg PO DAILY
bupropion HCl [Wellbutrin XL] 300 mg Tablet Extended Release 24 Hr
300 mg PO DAILY
cholecalciferol (vitamin D3) [Vitamin D3] 25 mcg (1,000 unit) Tablet
25 mcg PO DAILY
fenofibric acid (choline) 135 mg capsule,delayed release(DR/EC)
135 mg PO DAILY
pantoprazole [Protonix] 40 mg tablet,delayed release (DR/EC)
40 mg PO DAILY Qty: 30 0RF
Referrals:
Linda Maynard MD [Family Provider, Family Practice]
Activity Restrictions/Additional Instructions:
As discussed you have a blood clot in your left arm. You were given first dose of blood thinner here in the ER. A prescription was sent to your pharmacy. You will take 10 mg twice daily for 7 days followed by 5 mg twice daily. Please closely
follow-up with your family doctor in the next 2 to 3 days for reevaluation of your symptoms. Return if any worsening of symptoms including increased pain swelling difficulty breathing
Interventions
Interventions:
*Risk Screen - Suicide Last Done: 06/16/25 09:40
*General Assessment Last Done: 06/16/25 09:40
*Neglect/Abuse Screening Last Done: 06/16/25 09:40
*ED- Fall Risk Assessment Last Done: 06/16/25 11:05
*ED COVID-19 Vaccine History Last Done: 06/16/25 09:40
ED-Skin Assessment Last Done: 06/16/25 09:54
Discharge Date and Time
Print Language: CZECH
[2025-06-16 11:32] LABS: Hematocrit 41.4 % (39.0-52.0); Hemoglobin 14.0 g/dL (13.0-18.0); Mean Corp Hgb Conc. 33.8 g/dL (33.0-37.0); Mean Corpuscular Volume 86.6 fL (80.0-94.0); Nucleated Red Blood Cells % 0 % (-); Platelet Count 311 10^3/uL (130-400); Red Cell Dist. Width 12.7 % (11.5-14.5)
[2025-06-16 11:51] LABS: ALT (SGPT) 30 U/L (0-50); AST (SGOT) 21 U/L (17-59); Albumin 4.5 g/dl (3.5-5.0); Alkaline Phosphatase 48 U/L (38-126); Blood Urea Nitrogen 18 mg/dl (9-20); Calcium 10.0 mg/dl (8.4-10.2); Carbon Dioxide 28 mmol/L (22-30); Chloride 105 mmol/L (98-107); Estimated Creatinine Clearance > 125 ml/min; Glucose 98 mg/dl (70-99); Potassium 4.6 mmol/L (3.5-5.1); Sodium 140 mmol/L (135-145); Total Protein 7.1 g/dl (6.3-8.2); eGFR > 60.00
[2025-06-16 12:00] VITALS: BP 134/84
[2025-06-16] MEDS: ELIQUIS 10 MG PO (12:37)
--- NOTE | 2025-06-16 12:37 | CM ---
CM received consult for Eliquis pricing, I spoke to [facility], cost with insurance will be $100.00. I met with pt, he had already been given coupon for 30 day free supply by Allie, ED Pharmacist. I also gave him $10.00 co pay card. Pt states he was told
will need to take Eliquis for 3 months.
Pt aware he needs to wait for discharge instructions before leaving ED.
== END 2025-06-16 13:04 | disposition home or self-care (01) ==
LOC: EMR 09:39
PROVIDERS: Nurse Practitioner; EMERGENCY PHYSICIAN Emergency Medicine; FAMILY PHYSICIAN Family Medicine
DX: I82.622 Acute embolism and thrombosis of deep veins of left upper extremity (principal); E78.00 Pure hypercholesterolemia, unspecified; I10 Essential (primary) hypertension
CPT/HCPCS: 99284; 80053; 85025; 93971